=== PATIENT | male | born 1935 | race Two or more races ===

== ENCOUNTER 2024-02-23 10:31 | Outpatient (REF) | payer OTHER, SELFPAY | END 2024-02-23 10:32 | disposition home or self-care (01) | LOC: HO.SH 10:31 | PROVIDERS: Visit Provider Family Medicine Geriatric Medicine | DX: Z01.118 Encounter for examination of ears and hearing with other abnormal findings (principal); H90.3 Sensorineural hearing loss, bilateral | CPT/HCPCS: 92557; 92567 ==